=== PATIENT | female | born 1955 | race Caucasian/White ===

== ENCOUNTER 2019-03-25 02:37 | Emergency (ER) | payer OTHER ==
[~2019-03-25] VITALS: Ht 172.7 cm; Wt 73.9 kg
[2019-03-25 02:45] VITALS: Ht 172.7 cm; Wt 73.9 kg
[2019-03-25 06:30] VITALS: BP 144/71
== END 2019-03-25 06:30 | disposition home or self-care (01) ==
LOC: ED 02:37
DX: F41.9 Anxiety disorder, unspecified (principal); I10 Essential (primary) hypertension; Z88.1 Allergy status to other antibiotic agents

== ENCOUNTER 2019-08-13 15:56 | Emergency (ER) | payer OTHER ==
[~2019-08-13] VITALS: Ht 172.7 cm; Wt 80.3 kg
[2019-08-13 16:16] VITALS: Ht 172.7 cm; Wt 80.3 kg
[2019-08-13 17:10] VITALS: BP 124/81
== END 2019-08-13 17:10 | disposition home or self-care (01) ==
LOC: ED 15:56
DX: N89.8 Other specified noninflammatory disorders of vagina (principal); S41.102A Unspecified open wound of left upper arm, initial encounter; Z88.1 Allergy status to other antibiotic agents; X58.XXXA Exposure to other specified factors, initial encounter; Y93.89 Activity, other specified; Y92.89 Other specified places as the place of occurrence of the external cause; Y99.8 Other external cause status